=== PATIENT | male | born 1985 | race Caucasian/White ===

== ENCOUNTER → 2023-09-18 | Outpatient (CLI) | payer BC ==
[2023-09-18 19:17] LABS: BASO # 0.02 K/mm3 (0.02-0.10); EOS # 0.06 K/mm3 (0.04-0.40); EOS % 1.2 % (0.0-4.0); HEMATOCRIT 49.2 % (42.0-52.0); HEMOGLOBIN 16.8 g/dL (13.5-18.0); MEAN CELL VOLUME 90 fl (78-100); MEAN CORPUSCULAR HEMOGLOBIN 31 pg (27-31); MEAN CORPUSCULAR HGB CONC 34 g/dL (33-37); MEAN PLATELET VOLUME 10.5 fl (7.4-10.4); MONO # 0.49 K/mm3 (0.20-0.80); NEU # 3.28 K/mm3 (1.40-6.50); PLATELET COUNT 258 K/mm3 (130-400); RED BLOOD COUNT 5.44 M/mm3 (4.20-5.60); RED CELL DISTRIBUTION WIDTH 11.9 % (11.5-14.5); WHITE BLOOD COUNT 5.2 K/mm3 (4.8-10.8)
== END ==
LOC: AMSURD 18:09
PROVIDERS: Family Medicine
DX: R00.2 Palpitations (principal); R53.83 Other fatigue

== ENCOUNTER 2024-01-13 17:13 | Emergency (ER) | payer BC ==
[~2024-01-13] VITALS: Ht 172.7 cm; Wt 77.3 kg
[2024-01-13 17:44] LABS: BASO # 0.02 K/mm3 (0.02-0.10); EOS # 0.04 K/mm3 (0.04-0.40); EOS % 0.6 % (0.0-4.0); HEMATOCRIT 49.2 % (42.0-52.0); HEMOGLOBIN 16.5 g/dL (13.5-18.0); LYMPH# 1.21 K/mm3 (1.50-4.00); MEAN CELL VOLUME 94 fl (78-100); MEAN CORPUSCULAR HEMOGLOBIN 32 pg (27-31); MEAN CORPUSCULAR HGB CONC 34 g/dL (33-37); MEAN PLATELET VOLUME 10.8 fl (7.4-10.4); NEU # 4.65 K/mm3 (1.40-6.50); PLATELET COUNT 273 K/mm3 (130-400); RED BLOOD COUNT 5.22 M/mm3 (4.20-5.60); WHITE BLOOD COUNT 6.4 K/mm3 (4.8-10.8)
[2024-01-13 17:47] LABS: ALBUMIN 4.7 g/dL (3.5-5.0)
[2024-01-13 17:48] LABS: SODIUM 140 mmol/L (136-145)
[2024-01-13 17:50] LABS: GLUCOSE 85 mg/dL (75-110); TOTAL PROTEIN 7.6 g/dL (6.4-8.3)
[2024-01-13 17:51] LABS: CARBON DIOXIDE 26 mmol/L (22-29)
[2024-01-13 17:52] LABS: TOTAL BILIRUBIN 0.6 mg/dL (0.2-1.2)
[2024-01-13 17:55] LABS: AST-SGOT 29 U/L (5-34)
[2024-01-13 17:57] LABS: ACETAMINOPHEN < 1 ug/mL; ALCOHOL IN-HOUSE < 10 mg/dL (<10); ALT/SGPT 30 U/L (0-55)
[2024-01-13 18:25] LABS: URINE WBC 0 /hpf (0-3)
[2024-01-13] MEDS ORDERED: oxyCODONE/Acetaminophen 5-325 MG TAB PO ONE (18:30)
[2024-01-13 18:32] LABS: PH-URINE 7.5 (5.0 - 8.0); URINE APPEARANCE CLOUDY (CLEAR); URINE BILIRUBIN NEGATIVE (NEGATIVE); URINE BLOOD NEGATIVE (NEGATIVE); URINE COLOR YELLOW (YELLOW); URINE GLUCOSE NEGATIVE (NEGATIVE); URINE KETONE NEGATIVE (NEGATIVE); URINE LEUKOCYTE ESTERASE NEGATIVE (NEGATIVE); URINE NITRATE NEGATIVE (NEGATIVE); URINE PROTEIN(semi-quant) NEGATIVE (NEGATIVE)
[2024-01-13] MEDS ORDERED: traMADol 50 MG TAB PO ONE (19:15)
[2024-01-13] MEDS ORDERED: TRAMADOL 50 MG TAB PO (21:13)
[2024-01-13] MEDS ORDERED: AMITRIPTYLINE100 M3 PO (21:13)
[2024-01-13 21:20] VITALS: BP 127/86
[2024-01-13 21:25] VITALS: BP 127/86
== END 2024-01-13 21:33 | disposition home or self-care (01) ==
LOC: ED 17:13
PROVIDERS: Family Medicine
DX: R45.851 Suicidal ideations (principal); G43.909 Migraine, unspecified, not intractable, without status migrainosus; Z79.1 Long term (current) use of non-steroidal anti-inflammatories (NSAID)

== ENCOUNTER → 2024-01-14 | Outpatient (CLI) | payer BC ==
[~2024-01-14] MED LIST: AMITRIPTYLINE100 M3 PO; TRAMADOL 50 MG TAB PO
[2024-01-14 17:31] LABS: PH-URINE 6.5 (5.0 - 8.0); URINE APPEARANCE CLEAR (CLEAR); URINE BILIRUBIN NEGATIVE (NEGATIVE); URINE BLOOD NEGATIVE (NEGATIVE); URINE COLOR LIGHT YELLOW (YELLOW); URINE GLUCOSE NEGATIVE (NEGATIVE); URINE KETONE NEGATIVE (NEGATIVE); URINE LEUKOCYTE ESTERASE TRACE (NEGATIVE); URINE NITRATE NEGATIVE (NEGATIVE); URINE PROTEIN(semi-quant) NEGATIVE (NEGATIVE)
== END ==
LOC: LAB 16:43
PROVIDERS: Family Medicine
DX: N39.0 Urinary tract infection, site not specified (principal)